=== PATIENT | female | born 1945 | race Caucasian/White ===

== ENCOUNTER 2023-09-05 16:25 | Emergency (ER) | payer OTHER ==
[~2023-09-05] VITALS: Ht 154.9 cm; Wt 68.0 kg
[2023-09-05 16:27] VITALS: BP 170/93; PULSE 82; RESP 19; TEMP 98; O2SAT 94
[2023-09-05] MEDS ORDERED: ONDANSETRON 4 MG ODT PO ONE (17:00)
[2023-09-05] MEDS ORDERED: IBUP-2213 PO (17:14)
[2023-09-05] MEDS ORDERED: KETOROLAC 60 MG/2 ML VIAL IM ONE (17:45)
[2023-09-05 18:07] VITALS: BP 173/97; PULSE 79; RESP 12; TEMP 98; O2SAT 94
== END 2023-09-05 18:07 | disposition home or self-care (01) ==
LOC: MED 16:25
DX: S00.83XA Contusion of other part of head, initial encounter (principal); W18.30XA Fall on same level, unspecified, initial encounter; Y93.89 Activity, other specified; Y92.89 Other specified places as the place of occurrence of the external cause; Y99.8 Other external cause status
CPT/HCPCS: 70450; 70486; 96372; 99285; J1885; Q0162